=== PATIENT | female | born 1935 | race Two or more races ===

== ENCOUNTER 2023-07-10 18:27 | Inpatient (IN) | payer MEDICARE, OTHER ==
[~2023-07-10] VITALS: Ht 147.3 cm; Wt 83.0 kg
[2023-07-10 19:25] LABS: BASOPHILS # (AUTO) 0.1 K/uL (0.0-0.2); BASOPHILS % (AUTO) 0.7 % (0.0-2.0); EOSINOPHILS # (AUTO) 0.1 K/uL (0.0-0.7); EOSINOPHILS % (AUTO) 1.1 % (0.0-6.0); HEMATOCRIT 33 % (33-45); LYMPHOCYTES # (AUTO) 1.7 K/uL (0.8-4.8); LYMPHOCYTES % (AUTO) 20.3 % (20.0-44.0); MEAN CORPUSCULAR HEMOGLOBIN 28 PG (26.0-33.0); MEAN CORPUSCULAR HGB CONC 33 g/dl (31.0-36.0); MEAN CORPUSCULAR VOLUME 85 fL (82-100); MONOCYTES # (AUTO) 0.7 K/uL (0.1-1.30); MONOCYTES % (AUTO) 8.5 % (2.0-12.0); NEUTROPHILS # (AUTO) 5.7 K/uL (1.8-8.9); NEUTROPHILS % (AUTO) 69.4 % (43.0-81.0); PLATELET COUNT (AUTO) 152 K/uL (150-450); RED BLOOD CELL COUNT(AUTO) 3.91 MIL/uL (4.0-5.2); RED CELL DISTRIBUTION WIDTH 18.8 % (11.5-15.0); WHITE BLOOD COUNT (AUTO) 8.2 K/uL (4.3-11.0)
[2023-07-10 19:32] LABS: CALCIUM, SERUM 9.3 mg/dL (8.5-10.1); CARBON DIOXIDE 31 mmol/L (21-32); CHLORIDE 102 mmol/L (98-107); CREATININE 0.4 mg/dL (0.6-1.3); GLUCOSE 116 mg/dL (74-106); POTASSIUM 4.1 mmol/L (3.5-5.1); SODIUM SERUM 138 mmol/L (136-145); UREA NITROGEN, BLOOD 13 mg/dL (7-18)
[2023-07-10 19:38] LABS: ALANINE AMINOTRANSFERASE 14 U/L (12-78); ALCOHOL, BLOOD < 3 mg/dL (0-10); ALKALINE PHOSPHATASE 71 U/L (46-116); ASPARTATE AMINOTRANSFERASE 15 U/L (15-37); BILIRUBIN,DIRECT 0.2 mg/dL (0.0-0.2); BILIRUBIN,TOTAL 0.6 mg/dL (0.2-1.0); TOTAL PROTEIN, SERUM 7.4 g/dL (6.4-8.2)
[2023-07-10 19:41] LABS: SALICYLATE 0.7 mg/dL (2.8-20.0)
[2023-07-10 19:42] LABS: ACETAMINOPHEN <10 ug/ml (10-30)
[2023-07-10 21:38] LABS: APPEARANCE,URINE Clear (CLEAR); BILIRUBIN,URINE Negative (NEGATIVE); BLOOD, URINE Moderate Ery/uL (NEGATIVE); COLOR,URINE Other (YELLOW); KETONES,URINE Negative (NEGATIVE); LEUKOCYTE ESTERASE ,URINE Small (NEGATIVE); NITRITE, URINE Positive (NEGATIVE); PH,URINE 5.5 (5.0-8.0); PROTEIN,URINE Negative (NEGATIVE); UGLUCOSE Negative (NEGATIVE); UROBILINOGEN,URINE 0.2 EU/dL (0.2)
[2023-07-10 21:47] LABS: AMPHETAMINE, URINE NEGATIVE (NEGATIVE); BARBITURATE, URINE NEGATIVE (NEGATIVE); BENZODIAZEPINE, URINE NEGATIVE (NEGATIVE); CANNABINOID, URINE NEGATIVE (NEGATIVE); COCCAINE, URINE NEGATIVE (NEGATIVE); OPIATE, URINE NEGATIVE (NEGATIVE); PHENCYCLIDINE SCREEN,URINE NEGATIVE (NEGATIVE)
[2023-07-10 21:54] LABS: RBC,URINE 21-50 /HPF (0-2)
[2023-07-10 21:55] LABS: ADD URINE CULTURE YES; BACTERIA,URINE Moderate /HPF (None Seen); SQUAMOUS EPITHELIAL CELL,UR Rare /HPF (None Seen)
[2023-07-10 22:00] VITALS: BP 132/100; TEMP 98; O2SAT 94
[2023-07-10 22:10] VITALS: BP 132/100; TEMP 98; O2SAT 94
[2023-07-10] MEDS ORDERED: OLANZAPINE 10 MG VIAL IM ONE (22:51)
[2023-07-10] MEDS: OLANZAPINE 10 MG VIAL IM ONE (22:53)
[2023-07-10] MEDS ORDERED: MAG HYDROX/AL HYDROX/SIMETH 30 ML UDC PO PRN (23:00)
[2023-07-10] MEDS ORDERED: MAGNESIUM HYDROXIDE 30 ML UDC PO PRN (23:00)
[2023-07-10] MEDS ORDERED: ZOLPIDEM TARTRATE 5 MG TABLET PO PRN (23:00)
[2023-07-11 06:48] LABS: BASOPHILS % (AUTO) 0.5 % (0.0-2.0); EOSINOPHILS # (AUTO) 0.1 K/uL (0.0-0.7); EOSINOPHILS % (AUTO) 1.6 % (0.0-6.0); HEMATOCRIT 36 % (33-45); HEMOGLOBIN 11.6 g/dL (11.5-14.8); LYMPHOCYTES # (AUTO) 1.4 K/uL (0.8-4.8); LYMPHOCYTES % (AUTO) 17.7 % (20.0-44.0); MEAN CORPUSCULAR HEMOGLOBIN 28 PG (26.0-33.0); MEAN CORPUSCULAR HGB CONC 32 g/dl (31.0-36.0); MEAN CORPUSCULAR VOLUME 86 fL (82-100); MONOCYTES # (AUTO) 0.6 K/uL (0.1-1.30); NEUTROPHILS # (AUTO) 5.5 K/uL (1.8-8.9); NEUTROPHILS % (AUTO) 72.2 % (43.0-81.0); PLATELET COUNT (AUTO) 157 K/uL (150-450); RED BLOOD CELL COUNT(AUTO) 4.23 MIL/uL (4.0-5.2); WHITE BLOOD COUNT (AUTO) 7.6 K/uL (4.3-11.0)
[2023-07-11 07:16] LABS: CALCIUM, SERUM 9.3 mg/dL (8.5-10.1); CARBON DIOXIDE 33 mmol/L (21-32); CHLORIDE 101 mmol/L (98-107); CREATININE 0.5 mg/dL (0.6-1.3); GLUCOSE 117 mg/dL (74-106); MAGNESIUM 2.3 mg/dL (1.8-2.4); POTASSIUM 3.7 mmol/L (3.5-5.1); SODIUM SERUM 138 mmol/L (136-145); UREA NITROGEN, BLOOD 8 mg/dL (7-18)
[2023-07-11 08:00] VITALS: BP 92/41; TEMP 97.8; O2SAT 83
[2023-07-11] MEDS ORDERED: NA P133E RC (08:06)
[2023-07-11] MEDS ORDERED: ACET-2030 PO (08:06)
[2023-07-11] MEDS ORDERED: IPRA0.2S49 IH (08:06)
[2023-07-11] MEDS ORDERED: FAMO20TA80 PO (08:06)
[2023-07-11] MEDS ORDERED: BENZ200C53 PO (08:06)
[2023-07-11] MEDS ORDERED: DIGO125T PO (08:06)
[2023-07-11] MEDS ORDERED: MIRT7.5T10 PO (08:06)
[2023-07-11] MEDS ORDERED: ASPI-1420 PO (08:06)
[2023-07-11] MEDS ORDERED: MULT-213 PO (08:06)
[2023-07-11] MEDS ORDERED: MAGN400O6 PO (08:06)
[2023-07-11] MEDS ORDERED: LACT1CAP69 PO (08:06)
[2023-07-11] MEDS ORDERED: GUAI600T31 PO (08:06)
[2023-07-11] MEDS ORDERED: ACET-868 PO (08:06)
[2023-07-11] MEDS ORDERED: ATOR20TA PO (08:06)
[2023-07-11] MEDS ORDERED: ESOM20CA37 PO (08:06)
[2023-07-11] MEDS ORDERED: ASCO-352 PO (08:06)
[2023-07-11] MEDS ORDERED: EMPA10TA PO (08:06)
[2023-07-11] MEDS ORDERED: MIDO5TAB4 PO (08:06)
[2023-07-11] MEDS ORDERED: RISP0.5T5 PO (08:06)
[2023-07-11] MEDS ORDERED: FERR325T28 PO (08:06)
[2023-07-11] MEDS ORDERED: BISA10SU11 RC (08:06)
[2023-07-11] MEDS ORDERED: APIX5TAB PO (08:06)
[2023-07-11] MEDS ORDERED: AMIN30LI2 PO (08:06)
[2023-07-11] MEDS: CLOTRIMAZOLE 1% 15 GM TUBE TP SCH (09:45)
[2023-07-11 11:16] LABS: CHOLESTEROL 161 mg/dL (<200); HDL CHOLESTEROL 56 mg/dL (40-60); LDL 89 mg/dL (0-99); TRIGLYCERIDES 72 mg/dL (30-150)
[2023-07-11 16:00] VITALS: BP 98/49; TEMP 97.5; O2SAT 97
[2023-07-11] MEDS: ENSURE ENLIVE 237 ML LIQUID (VANILLA) PO SCH (17:04)
[2023-07-11] MEDS: risperiDONE 1 MG TABLET PO SCH (17:57)
[2023-07-11] MEDS: DIVALPROEX SODIUM 125 MG TABLET.DR PO SCH (20:32)
[2023-07-11 21:38] VITALS: BP 134/62; TEMP 98.2; O2SAT 93
[2023-07-12 07:08] LABS: CARBON DIOXIDE 30 mmol/L (21-32); CHLORIDE 104 mmol/L (98-107); CREATININE 0.5 mg/dL (0.6-1.3); GLUCOSE 97 mg/dL (74-106); MAGNESIUM 2.2 mg/dL (1.8-2.4); PHOSPHORUS 4.4 mg/dL (2.5-4.9); POTASSIUM 4.3 mmol/L (3.5-5.1); SODIUM SERUM 139 mmol/L (136-145); UREA NITROGEN, BLOOD 14 mg/dL (7-18)
[2023-07-12 08:00] VITALS: BP 90/41; TEMP 97.7; O2SAT 97
[2023-07-12 09:43] LABS: BASOPHILS % (AUTO) 0.5 % (0.0-2.0); EOSINOPHILS # (AUTO) 0.2 K/uL (0.0-0.7); EOSINOPHILS % (AUTO) 2.4 % (0.0-6.0); HEMATOCRIT 35 % (33-45); HEMOGLOBIN 11.3 g/dL (11.5-14.8); LYMPHOCYTES # (AUTO) 1.9 K/uL (0.8-4.8); LYMPHOCYTES % (AUTO) 25.2 % (20.0-44.0); MEAN CORPUSCULAR HEMOGLOBIN 28 PG (26.0-33.0); MEAN CORPUSCULAR HGB CONC 32 g/dl (31.0-36.0); MEAN CORPUSCULAR VOLUME 87 fL (82-100); MONOCYTES # (AUTO) 0.7 K/uL (0.1-1.30); MONOCYTES % (AUTO) 9.6 % (2.0-12.0); NEUTROPHILS # (AUTO) 4.7 K/uL (1.8-8.9); NEUTROPHILS % (AUTO) 62.3 % (43.0-81.0); PLATELET COUNT (AUTO) 153 K/uL (150-450); RED BLOOD CELL COUNT(AUTO) 4.03 MIL/uL (4.0-5.2); RED CELL DISTRIBUTION WIDTH 18.4 % (11.5-15.0); WHITE BLOOD COUNT (AUTO) 7.6 K/uL (4.3-11.0)
[2023-07-12] MEDS: ONDANSETRON HCL/PF 4 MG/2 ML VIAL IVP PRN (15:50)
[2023-07-12 16:00] VITALS: BP 87/50; TEMP 98.4; O2SAT 95
[2023-07-12 20:00] VITALS: BP_SYST 111; BP_DIAS 52; BP_DIAS 53; TEMP 98.2; O2SAT 94
[2023-07-12] MEDS: AMOX/CLAVULANATE 875 MG TABLET PO SCH (20:53)
[2023-07-12] MEDS: Z GUARD REMEDY 4 OZ OINT TP PRN (20:57)
[2023-07-13 08:00] VITALS: BP 100/56; TEMP 98.1; O2SAT 95
[2023-07-13] MEDS: MUPIROCIN OINT 2% 22 GM TUBE NS SCH (09:11)
[2023-07-13 16:00] VITALS: BP 113/53; TEMP 98.6; O2SAT 95
[2023-07-13 20:00] VITALS: BP 117/68; TEMP 98.8; O2SAT 94
[2023-07-14] MEDS: ACETAMINOPHEN 325 MG TABLET PO PRN (00:09)
[2023-07-14 06:09] LABS: BASOPHILS % (AUTO) 0.4 % (0.0-2.0); EOSINOPHILS # (AUTO) 0.2 K/uL (0.0-0.7); EOSINOPHILS % (AUTO) 3.2 % (0.0-6.0); HEMATOCRIT 31 % (33-45); HEMOGLOBIN 9.8 g/dL (11.5-14.8); LYMPHOCYTES # (AUTO) 1.5 K/uL (0.8-4.8); LYMPHOCYTES % (AUTO) 22.4 % (20.0-44.0); MEAN CORPUSCULAR HEMOGLOBIN 28 PG (26.0-33.0); MEAN CORPUSCULAR HGB CONC 32 g/dl (31.0-36.0); MEAN CORPUSCULAR VOLUME 87 fL (82-100); MONOCYTES # (AUTO) 0.6 K/uL (0.1-1.30); MONOCYTES % (AUTO) 8.9 % (2.0-12.0); NEUTROPHILS # (AUTO) 4.3 K/uL (1.8-8.9); NEUTROPHILS % (AUTO) 65.1 % (43.0-81.0); PLATELET COUNT (AUTO) 150 K/uL (150-450); RED BLOOD CELL COUNT(AUTO) 3.51 MIL/uL (4.0-5.2); RED CELL DISTRIBUTION WIDTH 18.1 % (11.5-15.0); WHITE BLOOD COUNT (AUTO) 6.7 K/uL (4.3-11.0)
[2023-07-14 06:53] LABS: CALCIUM, SERUM 9.1 mg/dL (8.5-10.1); CARBON DIOXIDE 37 mmol/L (21-32); CHLORIDE 99 mmol/L (98-107); CREATININE 0.4 mg/dL (0.6-1.3); GLUCOSE 124 mg/dL (74-106); MAGNESIUM 2.3 mg/dL (1.8-2.4); PHOSPHORUS 4.3 mg/dL (2.5-4.9); POTASSIUM 4.9 mmol/L (3.5-5.1); SODIUM SERUM 138 mmol/L (136-145); UREA NITROGEN, BLOOD 17 mg/dL (7-18)
[2023-07-14 09:30] VITALS: O2SAT 94
[2023-07-14] MEDS ORDERED: MIDODRINE HCL (5MG) 5 MG TABLET PO PRN (14:30)
[2023-07-14] MEDS ORDERED: BISACODYL SUPP (10 MG) 10 MG/SUPP.RECT SUPP.RECT RC PRN (14:30)
[2023-07-14] MEDS ORDERED: NA PHOS,M-B/NA PHOS,DI-BA 1 EA ENEMA RC PRN (14:30)
[2023-07-14] MEDS ORDERED: ACETAMINOPHEN ES 500 MG TABLET PO PRN (14:30)
[2023-07-14] MEDS ORDERED: ACETAMINOPHEN 325 MG TABLET PO PRN (14:30)
[2023-07-14] MEDS ORDERED: MAGNESIUM HYDROXIDE 30 ML UDC PO PRN (14:30)
[2023-07-14] MEDS ORDERED: IPRATROPIUM HALF ST 0.25 MG/1.25 ML VIAL.NEB IH PRN (15:00)
[2023-07-14] MEDS ORDERED: BENZONATATE 100 MG CAPSULE PO PRN (15:00)
[2023-07-14 16:00] VITALS: BP 112/64; TEMP 99; O2SAT 94
[2023-07-14] MEDS: LACTOBACILLUS RHAMNOSUS GG 1 EACH CAP.SPRINK PO SCH (17:50)
[2023-07-14] MEDS: risperiDONE 0.25 MG TABLET PO SCH (17:51)
[2023-07-14] MEDS: APIXABAN 5 MG TABLET PO SCH (18:00)
[2023-07-14 20:00] VITALS: BP 109/61; TEMP 98.8; O2SAT 96
[2023-07-14] MEDS: GUAIFENESIN LA 600 MG TABLET.SA PO SCH (21:30)
[2023-07-14] MEDS: ATORVASTATIN 10 MG TABLET PO SCH (21:32)
[2023-07-14] MEDS: MIRTAZAPINE 15 MG TABLET PO SCH (21:34)
[2023-07-15 06:55] LABS: BASOPHILS % (AUTO) 0.5 % (0.0-2.0); EOSINOPHILS # (AUTO) 0.3 K/uL (0.0-0.7); EOSINOPHILS % (AUTO) 4.3 % (0.0-6.0); HEMATOCRIT 32 % (33-45); HEMOGLOBIN 10.3 g/dL (11.5-14.8); LYMPHOCYTES # (AUTO) 1.2 K/uL (0.8-4.8); LYMPHOCYTES % (AUTO) 17.5 % (20.0-44.0); MEAN CORPUSCULAR HEMOGLOBIN 28 PG (26.0-33.0); MEAN CORPUSCULAR HGB CONC 33 g/dl (31.0-36.0); MEAN CORPUSCULAR VOLUME 86 fL (82-100); MONOCYTES # (AUTO) 0.4 K/uL (0.1-1.30); MONOCYTES % (AUTO) 6.3 % (2.0-12.0); NEUTROPHILS # (AUTO) 4.9 K/uL (1.8-8.9); NEUTROPHILS % (AUTO) 71.4 % (43.0-81.0); PLATELET COUNT (AUTO) 153 K/uL (150-450); RED BLOOD CELL COUNT(AUTO) 3.67 MIL/uL (4.0-5.2); RED CELL DISTRIBUTION WIDTH 17.3 % (11.5-15.0); WHITE BLOOD COUNT (AUTO) 6.8 K/uL (4.3-11.0)
[2023-07-15 07:31] LABS: CALCIUM, SERUM 9.7 mg/dL (8.5-10.1); CARBON DIOXIDE 38 mmol/L (21-32); CHLORIDE 100 mmol/L (98-107); CREATININE 0.5 mg/dL (0.6-1.3); GLUCOSE 105 mg/dL (74-106); MAGNESIUM 2.2 mg/dL (1.8-2.4); PHOSPHORUS 3.4 mg/dL (2.5-4.9); SODIUM SERUM 139 mmol/L (136-145); UREA NITROGEN, BLOOD 10 mg/dL (7-18)
[2023-07-15 08:00] VITALS: BP 123/58; TEMP 97.9; O2SAT 95
[2023-07-15] MEDS: MULTIVIT W/MINERALS 1 TAB TABLET PO SCH (08:32)
[2023-07-15] MEDS: FERROUS SULFATE (325 MG) 325 MG/TAB TABLET PO SCH (08:33)
[2023-07-15] MEDS: DIVALPROEX SODIUM 125 MG CAP.SPRINK PO SCH (08:33)
[2023-07-15] MEDS: ASCORBIC ACID 500 MG TABLET PO SCH (08:33)
[2023-07-15] MEDS: FAMOTIDINE (20 MG) 20 MG TABLET PO SCH (08:33)
[2023-07-15] MEDS: PANTOPRAZOLE 40 MG TABLET.DR PO SCH (08:33)
[2023-07-15] MEDS: ASPIRIN EC 81 MG TABLET.DR PO SCH (08:33)
[2023-07-15] MEDS: DIGOXIN 0.125 MG TABLET PO SCH (08:34)
[2023-07-15] MEDS ORDERED: Medication Not On Formulary EA (Empagliflozin (Jardiance) 10 MG) PO SCH (09:00)
[2023-07-15] MEDS: PROSTAT (PYXIS) 30 ML UDC PO SCH (09:00)
[2023-07-15 16:00] VITALS: BP 117/66; TEMP 99; O2SAT 96
[2023-07-15] MEDS ORDERED: AMOX1TAB16 PO (16:15)
[2023-07-15] MEDS ORDERED: DIVA125C2 PO (16:15)
[2023-07-15 20:00] VITALS: BP 110/52; TEMP 98.4; O2SAT 93
[2023-07-16] MEDS: ACETAMINOPHEN ES 500 MG TABLET PO PRN (03:07)
[2023-07-16 07:00] VITALS: BP 128/98; TEMP 98.4; O2SAT 93
[2023-07-16 16:00] VITALS: BP 118/54; TEMP 98.4; O2SAT 94
[2023-07-16 17:14] VITALS: O2SAT 93
[2023-07-16 19:48] VITALS: O2SAT 95
[2023-07-16 20:00] VITALS: BP 107/62; TEMP 98.6; O2SAT 94
[2023-07-17 08:33] VITALS: BP 124/64; TEMP 98; O2SAT 96
[2023-07-17 13:32] VITALS: O2SAT 96
== END 2023-07-17 16:59 | DRG 690 ==
LOC: ER 18:37 → MED 21:47
PROVIDERS: ADMIT Nurse Practitioner Family; ATTEND Nurse Practitioner Acute Care
DX: N39.0 Urinary tract infection, site not specified (principal); F03.93 Unspecified dementia, unspecified severity, with mood disturbance; D68.69 Other thrombophilia; F05 Delirium due to known physiological condition; R78.81 Bacteremia; R62.7 Adult failure to thrive; I48.91 Unspecified atrial fibrillation; D63.8 Anemia in other chronic diseases classified elsewhere; E11.9 Type 2 diabetes mellitus without complications; E66.3 Overweight; I10 Essential (primary) hypertension; B96.1 Klebsiella pneumoniae [K. pneumoniae] as the cause of diseases classified elsewhere; K21.9 Gastro-esophageal reflux disease without esophagitis; Z68.38 Body mass index [BMI] 38.0-38.9, adult
CPT/HCPCS: 36415; 71045-TC; 80048-TC; 80061-TC; 80076-TC; 81001; 83735-TC; 84100-TC; 84443-TC; 85025-TC; 87040-TC; 87081-TC; 87086-TC; 94760-TC; 94762-TC; 94799-TC; 97110-TC; 97530-TC; G0378; G0480; J2405; J3490